=== PATIENT | female | born 1970 | race Asian ===

== ENCOUNTER 2017-05-11 11:58 | Emergency (ER) | payer OTHER ==
[2017-05-11] MEDS ORDERED: NACL 0.9% 1000 ML 1,000 ML IV ONE (14:00)
[2017-05-11] MEDS ORDERED: BABY ASPIRIN PO ONE (14:00)
--- NOTE | 2017-05-11 14:04 | Emergency Department Report ---
Blank Doc - Documentation Documentation: (interpretor: pts daughter), 46yo female with PMHx of HTN, came in complaining for a left sided chest pain, pt states that her chest pain started about 3 days ago, non radiating, + pressure like, no alleviating, no exacerbating factors, denies n/v/sob, +cp. pt denies any fever, chills blood work, d-dimer, cxr ordered, pt will go to ER side and be seen by another physician for further evaluation, treatment and disposition
[2017-05-11 14:40] LABS: Hematocrit 29.3 % (30.3-42.9); Hemoglobin 9.2 gm/dl (10.1-14.3); Mean Corpuscular HGB Conc 31 % (30-34); Platelet Count 276 K/mm3 (140-440); Red Cell Distribution Width 18.8 % (13.2-15.2)
[2017-05-11 14:50] LABS: INR 0.89 (0.87-1.13); Mean Corpuscular Hemoglobin 21 pg (28-32); Mean Corpuscular Volume 68 fl (79-97); Partial Thromboplastin Time 25.6 Sec. (24.2-36.6)
[2017-05-11 14:59] LABS: Alanine Aminotransferase 14 units/L (7-56); Albumin 3.8 g/dL (3.9-5); BUN/Creatinine Ratio 20; Blood Urea Nitrogen 10 mg/dL (7-17); Calcium 8.4 mg/dL (8.4-10.2); Hemolysis Index 3
--- NOTE | 2017-05-11 14:59 | XRay Report ---
PORTABLE CHEST INDICATION: Chest pain. COMPARISON: None similar at this institution. FINDINGS: Portable, frontal chest radiograph suggests borderline/mild cardiomegaly. Clear lungs. Unremarkable bones. CONCLUSION: Possible cardiomegaly without acute chest process, as described. Thank you for the opportunity to participate in this patient's care.
[2017-05-11 15:29] LABS: Basophils % (Manual) 0 % (0.0-1.8); Total Cells Counted 100
[2017-05-11 15:30] LABS: Anisocytosis 1+; Hypochromasia 1+; Target Cells 1+
--- NOTE | 2017-05-11 15:36 | Emergency Department Report ---
ED General Adult HPI - General Chief complaint: Chest Pain Stated complaint: CP Time Seen by Provider: 05/11/17 13:59 Source: patient, language interpreter Mode of arrival: Ambulatory Limitations: Language Barrier - History of Present Illness Initial comments: Patient presents to emergency department with left-sided chest pain that started 3 days ago. There is a language barrier and we are using a dietary aide teacher to help with the history. Patient states she has a past medical history of hypertension and elevated cholesterol levels. Patient describes the pain as pressure-like and denies any radiation of chest pain. -: Sudden Location: chest Radiation: non-radiation Severity scale (0 -10): 4 Quality: other (pressure-like) Consistency: intermittent Improves with: none Worsens with: none Associated Symptoms: denies other symptoms Treatments Prior to Arrival: none - Related Data Allergies Allergy/AdvReac Type Severity Reaction Status Date / Time No Known Allergies Allergy Unverified 05/11/17 12:08 ED Review of Systems ROS: Stated complaint: CP Other details as noted in HPI Comment: All other systems reviewed and negative Constitutional: denies: chills, fever Eyes: denies: eye pain, eye discharge, vision change ENT: denies: ear pain, throat pain Respiratory: denies: cough, shortness of breath, wheezing Cardiovascular: chest pain. denies: palpitations Endocrine: no symptoms reported Gastrointestinal: denies: abdominal pain, nausea, diarrhea Genitourinary: denies: urgency, dysuria, discharge Musculoskeletal: denies: back pain, joint swelling, arthralgia Skin: denies: rash, lesions Neurological: denies: headache, weakness, paresthesias Psychiatric: denies: anxiety, depression Hematological/Lymphatic: denies: easy bleeding, easy bruising ED Past Medical Hx - Past Medical History Previous Medical History?: Yes Hx Hypertension: Yes - Surgical History Past Surgical History?: No - Social History Smoking Status: Never Smoker Substance Use Type: None ED Physical Exam - General Limitations: Language Barrier General appearance: alert, in no apparent distress - Head Head exam: Present: atraumatic, normocephalic - Eye Eye exam: Present: normal appearance - ENT ENT exam: Present: mucous membranes moist - Neck Neck exam: Present: normal inspection - Respiratory Respiratory exam: Present: normal lung sounds bilaterally. Absent: respiratory distress - Cardiovascular Cardiovascular Exam: Present: regular rate, normal rhythm. Absent: systolic murmur, diastolic murmur, rubs, gallop - GI/Abdominal GI/Abdominal exam: Present: soft, normal bowel sounds - Extremities Exam Extremities exam: Present: normal inspection - Back Exam Back exam: Present: normal inspection - Neurological Exam Neurological exam: Present: alert, oriented X3, CN II-XII intact, normal gait, motor sensory deficit - Psychiatric Psychiatric exam: Present: normal affect, normal mood - Skin Skin exam: Present: warm, dry, intact, normal color. Absent: rash ED Course Vital Signs 05/11/17 05/11/17 05/11/17 12:08 18:22 19:22 Temperature 98.6 F Pulse Rate 73 71 Respiratory 16 16 18 Rate Blood Pressure 167/96 Blood Pressure 182/95 [Right] O2 Sat by Pulse 100 99 Oximetry ED Medical Decision Making - Lab Data Result diagrams: 05/11/17 14:03 05/11/17 14:03 - EKG Data -: EKG Interpreted by Nc EKG shows normal: sinus rhythm (73) Rate: normal - EKG Data Interpretation: other - Medical Decision Making Discussed results with patient through an language interpreter Also discussed with patient that her blood pressure was elevated and that we will be treating it Critical care attestation.: If time is entered above; I have spent that time in minutes in the direct care of this critically ill patient, excluding procedure time. ED Disposition Clinical Impression: Nonspecific chest pain, Elevated BP without diagnosis of hypertension Disposition: DC-01 TO HOME OR SELFCARE Is pt being admited?: No Does the pt Need Aspirin: No Condition: Stable Instructions: Chest Pain (ED) Additional Instructions: Return if symptoms become worse Referrals: NOAH GILLESPIE JR, MD [Staff Physician] - 3-5 Days Time of Disposition: 19:45
[2017-05-11] MEDS ORDERED: BABY ASPIRIN ONE (16:24)
[2017-05-11] MEDS ORDERED: NACL ONE (16:59)
--- NOTE | 2017-05-11 18:54 | Cat Scan Report ---
FINAL REPORT PROCEDURE: CT ANGIO CHEST TECHNIQUE: Computerized tomographic angiography of the chest was performed during the IV injection of iodinated nonionic contrast including image processing. The image data was postprocessed using 2-dimensional multiplanar reformatted (MPR) and 3-dimensional (MIP and/or volume rendered) techniques. HISTORY: elevated d dimer. Evaluate pulmonary embolus COMPARISON: No prior studies are available for comparison. FINDINGS: Pulmonary outflow tract, right and left main pulmonary arteries and their proximal branches: Clear, no filling defects seen to suggest pulmonary embolus. Pericardium: No evidence of pericardial effusion. Thoracic aorta: No evidence of aneurysmal dilatation or dissection. Coronary arteries: Are unremarkable. Mediastinum and hilar regions: Nonspecific subcentimeter lymph nodes are visualized. No pathologically enlarged lymph nodes or masses are identified. Lung Shannon: Clear Upper abdomen: No acute or focal abnormality is seeen. Other: No acute bony abnormalities are seen. IMPRESSION: Negative exam. No evidence of pulmonary embolus.
[2017-05-11 19:24] VITALS: BP 182/95
== END 2017-05-11 20:13 | disposition home or self-care (01) ==
LOC: ED 11:58
DX: R07.89 Other chest pain (principal); I10 Essential (primary) hypertension
CPT/HCPCS: 36415; 71045; 71275; 80053; 83880; 84484; 84702; 85007; 85025; 85379; 85610; 85730; 93005; 93010; 96360; 99285; J7030; Q9967